=== PATIENT | female | born 1940 | race Caucasian/White ===

== ENCOUNTER 2023-08-13 10:48 | Day surgery (SDC) | payer MEDICARE, SELFPAY ==
[2023-08-13 10:52] VITALS: BP 129/63; PULSE 68; RESP 18; TEMP 37; O2SAT 99
[2023-08-13] MEDS: Povidone-Iodine Ophth 30 ML BTL (11:41)
--- NOTE | 2023-08-13 11:43 | W.ANESPRE ---
General Info Date of Service Date Performed: 08/13/23 Height: 5 ft 2 in Weight: 50.2 kg Body Mass Index (BMI): 20.2 Surgical Procedure: Operation Date: 08/13/23 14:40 Proposed Procedure Side Surgeon p Cataract Extraction with IOL Implant w/Glaucoma Stent Left Carlo Hall MD Actual Procedure Side Surgeon p Cataract Extraction with IOL Implant w/Glaucoma Stent Left Carlo Hall MD Pre-Op Diagnosis Post-Op Diagnosis CATARACT, GLAUCOMA OD CATARACT, GLAUCOMA OD Meds Allergies and Home Medications Allergies Allergy/AdvReac Type Severity Reaction Status Date / Time environmental Allergy Mild Uncoded 08/13/23 11:07 Home Medication Medication Instructions Recorded B Complex 1 cap PO DAILY 04/12/14 Garlic 1 cap PO DAILY 04/12/14 Huperzine A 1 cap PO DAILY 04/12/14 Lutein 24 mg PO DAILY 04/12/14 Multivitamin 1 tab PO DAILY 04/12/14 Vit C 1,000 mg PO DAILY 04/12/14 Vit D 2 tab PO DAILY 04/12/14 Current Visit Medications: Current Medications Generic Name Dose Route Start Last Admin Trade Name Freq PRN Reason Stop Dose Admin Acetaminophen 1,000 mg 08/13/23 06:00 Acetaminophen 500 Mg Tab PO 09/12/23 05:59 Q4H PRN PRN Balanced Salt Solution 500 ml 08/13/23 06:00 Balanced Salt Soln.-Plus 500 Ml Bag OP 09/12/23 05:59 DIRECTED CELESTE Miscellaneous Medication 0 ml 08/13/23 06:00 Prednisolone 1%, Moxifloxacin 0.5%, Bromfenac 0.09% 5ml Btl OS 09/12/23 05:59 DIRECTED CELESTE Miscellaneous Medication 0 ml 08/13/23 06:00 08/13/23 11:25 Tropicam./Phenyleph. (1/2.5%) 10 Ml Btl OS 09/12/23 05:59 1 drp DIRECTED CELESTE Administration Tetracaine HCl 0 ml 08/13/23 06:00 Tetracaine 0.5% 4 Ml Btl OS 09/12/23 05:59 DIRECTED CELESTE PFSH Active Problems Active Problems: Problem Status Onset Code Primary open angle glaucoma (POAG) of left eye, mild stage H40.1121 Cortical age-related cataract, left eye H25.012 Nuclear age-related cataract, left eye H25.12 Family history of malignant neoplasm of gastrointestinal tract Z80.0 Medical History Medical History BCC (basal cell carcinoma), face Hair loss Bilateral tinnitus Osteopenia Glaucoma Macular degeneration History of cancer Colon polyp Tobacco Smoking/Tobacco Use Status: Never Alcohol Alcohol Intake: never Substance Use Substance use: Never Vital Signs and Lab Results Vital Signs Most Recent Vital Signs in EMR: Most Recent Vital Signs Temp Pulse Resp BP Pulse Ox 37 C 68 18 129/63 99 08/13/23 10:52 08/13/23 10:52 08/13/23 10:52 08/13/23 10:52 08/13/23 10:52 Lab Results Blood Type / Crossmatch: No Data to Display Complete Blood Count: No Data to Display Complete Metabolic Panel: No Data to Display Liver Function Panel: No Data to Display Coagulation Panel: No Data to Display Cardiac Panel: No Data to Display Arterial Blood Gas: No Data to Display Venous Blood Gas: No Data to Display Pancreas Panel: No Data to Display Thyroid Panel: No Data to Display Infectious Disease: No Data to Display Blood Cultures: No Data to Display Toxicology Panel: No Data to Display Anesthesia Assessment and Plan Anesthesia History Personal History: No History of Anesthesia Complications Family History: No Family History of Anesthesia Complications Exercise Tolerance Exercise Tolerance: Metabolic Equivalents>4 Pertinent Negatives Pertinent Negatives: No Symptoms of GERD, No Major Cardiovascular Symptoms or Complaints and No Major Pulmonary Symptoms or Complaints Cardiac & Pulmonary Exam Cardiac Exam: Normal S1/S2 Heart Sounds Pulmonary Exam: Clear Bilateral Breath Sounds Implantable Cardiac Device Does patient have a Pacemaker or an ICD?: No Airway Exam Known Difficult Airway: No Mallampati Class: 2 Mouth Opening: Normal (> 3cm) Thyromental Distance: Greater than 3 cm Neck Range of Motion: Full ROM Neck Circumference: Normal Teeth Condition: Normal Dentition ASA Classification ASA Score: ASA 2 Emergency Case?: No NPO Status NPO Status: NPO Clears >2 hours, Solids >8 hours Anesthesia Plan Resuscitation Status: Full Code Anesthesia Technique: MAC Anesthesia Airway Planned: Natural Airway Monitors Used: Standard Monitors
[2023-08-13 11:44] VITALS: BMI 20.2
[2023-08-13] MEDS: Balanced Salt Soln.-PLUS 500 ML BAG OP (11:51)
[2023-08-13] MEDS: Duovisc Viscoelastic System EACH 1 EACH (11:52)
[2023-08-13] MEDS: Tetracaine 0.5% 4 ML BTL OS (11:53)
[2023-08-13] MEDS: Lidocaine 1% Pres-Free 5 ML VIAL (11:53)
[2023-08-13 12:15] VITALS: BP 123/66; PULSE 61; RESP 17; TEMP 36.1; O2SAT 99
--- NOTE | 2023-08-13 12:17 | W.PM.DSUDISC ---
Date of service: 08/13/23 Time of Service: 12:17 Discharge Plan Disposition Patient Disposition: Home Discharge Details Attending Provider: Carlo Hall Primary Care Provider: Dave Horan Home Meds and New Rx's Prescriptions: No Action B complex 1 cap PO DAILY Huperzine A 1 cap PO DAILY garlic 1 cap PO DAILY lutein 24 mg PO DAILY multivitamin 1 tab PO DAILY vit D 2 tab PO DAILY vit c 1,000 mg PO DAILY ginkgo biloba 1 cap PO DAILY 0RF Discharge Instructions Stand Alone Forms: [facility] Post-Op Cataract, Arnold Gill ([facility]) Discharge Orders Discharge Orders: Discharge Order (Routine); Ordered 08/13/23 Ordered By: Carlo Hall DS: Diagnosis Discharge Diagnosis (1) Nuclear age-related cataract, left eye: Status: Resolved (2) Cortical age-related cataract, left eye: Status: Resolved (3) Primary open angle glaucoma (POAG) of left eye, mild stage: Status: Chronic
--- NOTE | 2023-08-13 12:18 | ROE_ITS ---
Date of service: 08/13/23 Time of Service: 12:19 Operative Note Operative Note DATE OF PROCEDURE: 08/13/23 PRE-OP DIAGNOSIS: Nuclear/cortical cataract, left eye Primary open-angle glaucoma, left eye, mild stage POST-OP DIAGNOSIS: same PROCEDURE: Cataract extraction using phacoemulsification with intraocular lens implant, left eye Implantation of mulitple trabecular micro-bypass stents SURGEON: Carlo Hall ANESTHESIA TYPE: Local By Surgeon and MAC Refer to Anesthesia Record PATHOLOGY: none sent COMPLICATIONS: None Patient was transported to: same day Patient's condition: stable Implants: Chester Clareon [id number] Glaukos iStents Indications: Progressive decreased vision due to cataract, left eye Primary open angle glaucoma, left eye, mild stage Procedure Description: CATARACT SURGERY OPERATIVE REPORT PREOPERATIVE DIAGNOSIS: Nuclear/cortical cataract, left eye Primary open-angle glaucoma, left eye, mild stage POSTOPERATIVE DIAGNOSIS: Same OPERATION: 1. Cataract extraction using phacoemulsification with posterior chamber intraocular lens implant, left eye. 2. Insertion of multiple anterior segment aqueous drainage devices (Glaukos iStent) into trabecular meshwork, left eye IOL: IOL Vinyl Flooring Installer/Model: Chester Clareon [id number] IOL Power: + 21.0 diopters IOL Serial Number: [id number] Optic Diameter: 6.0mm Haptic/Overall Diameter: 13.0mm PHACO INFO: Chester Centurion Vision System with OZil and Active Fluidics Cumulative Dispersed Energy (CDE): 13.37 seconds TRABECULAR MICRO-BYPASS STENT INFO: Glaukos iStent x 2 Reference Number: [id number] Serial Number: [id number] US [id number] SURGEON: Carlo Hall MD, SEBASTIAN ANESTHESIA: Monitored Anesthesia Care (MAC), with local sub-tenon's anesthetic infiltration COMPLICATIONS: None SPECIMENS: None INDICATIONS FOR PROCEDURE: The patient is an 83-year-old lady with 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 She has poor central visual acuity in the right eye. She has a history of mild stage primary open-angle glaucoma and is currently controlled on 2 medications. She has developed a visually significant nuclear/cortical cataract in the left eye and desires cataract surgery and attempt to improve and maximize her vision. In addition, the option of microtrabecular bypass stent at the time of cataract surgery was offered to the patient and she wished to proce ed. See office notes for detailed information. PROCEDURE: The correct surgical eye was identified and marked as the left eye and the pupil was dilated in the preoperative area using mydriatics and cycloplegics. The dilated pupil size was 6.0 mm. The patient was brought to the operating room where cardiopulmonary monitoring was instituted and surgical time-out was performed, confirming the correct operative eye and IOL power. Topical anesthesia was administered and ophthalmic povidone-iodine 5% was instilled into the conjunctival fornices. The petar-ocular area was prepped with Betadine 10% solution and draped in the usual sterile fashion for intraocular surgery, including an aperture drape. A Tegaderm transparent film dressing was cut in half and used to cover the lashes and lid margins. Care was taken to sequester the lashes and lid margins under the Tegaderm dressing. A lid speculum was placed between the lids of the operative eye and the Chester LuxOR Re valia operating microscope was maneuvered into position. Lisa scissors were then used to make a conjunctival buttonhole approximately 6mm posterior to the limbus in the inferonasal quadrant. Blunt dissection was carried out to expose bare sclera, and a blunt-tipped sub-tenon?s anesthesia cannula was introduced and passed posteriorly along the globe where non- preserved plain lidocaine was injected into posterior sub-Tenon?s space. A sideport knife was used to make a paracentesis port superiorly/superiortemporally. Intraocular phenylephrine/lidocaine was injected into the anterior chamber. The anterior chamber was then filled with viscoelastic. A keratome knife was used to construct a clear corneal tunnel extending 2.0mm into clear cornea. . A flap was raised on the anterior capsule and capsulorhexis forceps were used to complete a continuous curvilinear capsulorhexis of 5.0 mm. Balanced salt solution was then used to perform cortical cleaving hydrodissection and nuclear hydrodelineation until the lens could be freely rotated within the capsular bag. The lens nucleus was then disassembled and removed within the capsular bag and iris plane using phacoemulsification. Re sidual cortical material was removed using the 45-degree angled silicone I/A tip with 0.3mm port. The posterior capsule was carefully polished to remove as much residual lens epithelial cells as safely possible. The capsular bag was then inflated and the anterior chamber deepened with viscoelastic. The lens implant described above was inserted into the capsular bag using the Chester Autonome pre-loaded injector. A Kuglen hook was used to dial the IOL into position. The anterior chamber was then slightly over-filled with viscoelastic. The microsope and the patient's head were tilted into the ideal position for viewing of the anterior chamber angle. Viscoelastic was placed on the cornea followed by a surgical gonionlens, and the anterior chamber angle landmarks were identified. The OmnisensukMor.sl iStent injection handpiece was introduced into the anterior chamber and the insertion sleeve was retracted. The trocar was advanced through the central portion of the trabecular meshwork and into the back wall of Schlemm's canal in the nasal quadrant, with care taken to ensure the micro- insertion tube was perpendicular to the trabecular meshwork. The trabecular meshwork was lightly dimpled and the stent was injected without difficulty, but failed to embed completely. Attempt was made to rethread the trocar, but was unsuccessful due to poor visualization from angle hemorrhage, which was cleared with additional viscoelastic. The stent was relocated to the surface of the iris in the ankle.. The same procedure was then performed in the inferiornasal quradrant. A third stent was then injected into the superiornasal quadrant. The stents were then examined and noted to be in good position within the trabecular meshwork. A moderate amount of blood reflux was present through the stent ap ertures. The microscope and the patients head were returned to the normal coaxial position. Viscoelatic was then removed from the anterior chamber using the I/A handpiece. The first stent was also aspirated from the nasal angle. Blanching of the deep conjunctival vessels was noted nasally during removal of viscoelastic. The lens implant was noted to center nicely within the capsular bag. The incisions were stromally hydrated, and the anterior chamber was reformed using BSS. Then 0.5cc of moxifloxacin 1.0mg/ml were injected into the capsular bag and anterior chamber. The incisions were checked with a Weck spear and found to be secure. Several drops of ophthalmic povidone-iodine 5% were then applied to the eye followed by two drops of Imprimis combination prednisolone/moxifloxacin/n epafenac solution. The drapes were removed and a clear plastic protective eye shield was placed over the eye. The patient was then returned to Same Day Surgery in stable condition..
--- NOTE | 2023-08-13 16:48 | W.ANESPOSTOP ---
Postoperative Evaluation Date, Time and Location Date Performed: 08/13/23 Time Performed: 12:20 Patient Location: Day Surgery Unit Vital Signs Most Recent Imported Vital Signs: Most Recent Vital Signs Temp Pulse Resp BP Pulse Ox 36.1 C L 61 17 123/66 99 08/13/23 12:15 08/13/23 12:15 08/13/23 12:15 08/13/23 12:15 08/13/23 12:15 Pain Score Most Recent Pain Score: Most Recent Pain Score Pain Level 0 08/13/23 12:15 Assessment Mental Status: Awake (Alert & Oriented to Patient Baseline) Airway and Respiratory Function: Patent airway with normal (patient baseline) respiratory exam Cardiovascular Function: Hemodynamically Stable Hydration Status: Adequately Hydrated Nausea & Vomiting: No Nausea or Vomiting Pain: Pt. Denies Any Pain Peripheral Nerve Block: Patient did not receive a nerve block
== END 2023-08-13 12:40 | disposition home or self-care (01) ==
PROVIDERS: PCP Physician Assistant Medical; Visit Provider Ophthalmology
PROC: (CPT 66991; principal; 2023-08-13 14:30)
DX: H25.012 Cortical age-related cataract, left eye (principal); H25.12 Age-related nuclear cataract, left eye; H40.1121 Primary open-angle glaucoma, left eye, mild stage
CPT/HCPCS: 66991; 00123; V2632; J2003